=== PATIENT | female | born 1955 | race Caucasian/White ===

== ENCOUNTER 2018-11-05 11:50 | Inpatient (IN) ==
[2018-11-05] MEDS ORDERED: NS 1,000 ML IV ONE (12:42)
[2018-11-05] MEDS ORDERED: ZOFRAN IV ONE (12:42)
[2018-11-05 13:33] LABS: BASO# 0.02 X1000 (0.0-0.2); BASO% 0.4 % (0.0-0.8); EOS# 0.06 X1000 (0.0-0.7); EOS% 1.1 % (0.0-10.0); HEMATOCRIT 21.1 % (37.0-47.0); HEMOGLOBIN 6.5 g/dL (12.0-16.0); LYMPH# 0.75 X1000 (1.2-3.4); LYMPH% 13.4 % (20.5-51.1); MCH 25.5 PG (27-31); MCHC 30.8 g/dL (33-37); MCV 82.7 FL (81-99); MONO# 0.31 X1000 (0.11-0.59); MONO% 5.5 % (1.7-9.3); NEUT# 4.47 X1000 (1.4-6.5); NEUT% 79.6 % (42.2-75.2); PLT 204 X1000 (130-400); RBC 2.55 XMIL (4.2-5.4); WBC 5.61 X1000 (4.8-10.8)
[2018-11-05] MEDS ORDERED: NS 250 ML IV ONE (13:43)
[2018-11-05 13:48] LABS: AGAP 13; ALB/GLOB RATIO 2.1; ALBUMIN 3.9 g/dL (3.5-5.0); ALKALINE PHOSPHATASE 53 U/L (32-104); BUN 26 mg/dL (8-22); CALCIUM 8.4 mg/dL (8.8-10.2); CHLORIDE 106 mmol/L (98-107); COSMO 282; CREATININE 0.7 mg/dL (0.5-0.9); ESTIMATED GFR > 60; GLUCOSE 96 mg/dL (70-104); GOT 12 U/L (10-30); GPT 8 U/L (10-36); POTASSIUM 3.8 mmol/L (3.5-5.1); SODIUM 139 mmol/L (136-145); TCO2 20 mmol/L (25-35); TOTAL BILIRUBIN 0.47 mg/dL (0.20-1.00); TOTAL PROTEIN 5.8 g/dL (6.3-8.3)
--- NOTE | 2018-11-05 14:30 | PROVIDER DOCUMENTATION ---
This chart was entered by Adelita Ortez Scribe, acting as scribe for Ernst Boyle CRNP. HPI-Abdominal Pain/GI Problem - General Chief Complaint: GI Bleed Stated Complaint: rectal bleed Time Seen by Provider: 11/05/18 12:07 Source: patient Allergies/Adverse Reactions: Patient Allergies Allergy/AdvReac Type Severity Reaction Status Date / Time hydromorphone [From Dilaudid] AdvReac VOMITING Verified 11/05/18 13:23 Home Medications: Home Medication List Medication Instructions Recorded Confirmed Last Taken Type Alprazolam 1 tab PO TID 11/05/18 11/05/18 Unknown History Cyanocobalamin (Vitamin B-12) 1,000 mcg IJ DIRECTED 11/05/18 11/05/18 Unknown History [Cyanocobalamin Injection] Quetiapine [Seroquel] 2 tab PO QHS 11/05/18 11/05/18 Unknown History - History of Present Illness-ABD Nature of Presenting Problems: 63yof with hx of anemia c/o fatigue, bloody diarrhea, and nausea for 3 days. States blood is bright red. She denies any pain. She reports she has an appointment with an oncologist tomorrow for anemia. She denies fever, chills, vomiting, or any other symptoms. She is non-toxic in appearance. Quality of Pain: reports: none Severity in ED: reports: mild Onset/Duration: reports: 3 days ago Timing: reports: still present, intermittent, constant Activities at Onset: reports: none Modifying Factors: improves with: nothing Associated Symptoms: reports: diarrhea, nausea, weakness, other (bright red bloody stools) Similar Symptoms Previously?: No Recently seen or treated by another doctor?: No Review of Systems - Adult - REVIEW OF SYSTEMS - ADULT Constitutional: denies: chills, fever Eyes: denies: discharge, dry eyes Ears, Nose, Mouth & Throat: denies: ear discharge, ear pain Cardiovascular: denies: chest pain, palpitations Respiratory: denies: cough, shortness of breath Gastrointestinal: reports: diarrhea, nausea, rectal bleeding Genitourinary: denies: dysuria, hematuria Musculoskeletal: reports: muscle weakness (generalized weakness). denies: back pain Integumentary: reports: no symptoms reported Neurological: denies: dizziness/vertigo, headache/migraines Psychiatric: reports: no symptoms reported Endocrine: reports: no symptoms reported Hematologic/Lymphatic: reports: no symptoms reported Allergic/Immunologic: reports: no symptoms reported All Other Systems: Reviewed and Negative Past History - Adult - PAST MEDICAL HISTORY-ADULT Review of Records: reports: Old Records Reviewed, Nursing Assessment Review, Medications Reviewed Additional History: anemia, blood clots - PRIOR SURGERIES/PROCEDURES Surgical/Procedure History: reports: tonsillectomy - IMMUNIZATION STATUS Childhood Immunizations: See Nurse Assessment Flu Vaccine: See Nurse Assessment - FAMILY HISTORY Family History: reviewed, not pertinent - SOCIAL HISTORY Smoking: non-smoker Substance Use: alcohol Alcohol Use Frequency: occasionally Living Situation: family Physical Exam-General - PHYSICAL EXAM-ADULT Initial Vital Signs Reviewed: Yes - CONSTITUTIONAL General Appearance: alert, no apparent distress. negative: lethargic, slow to respond - EYES Eyes: PERRL/EOMI, pale conjunctivae. negative: sclera injected, scleral icterus, sunken eyes - HEAD, EARS, NOSE, MOUTH & THROAT HENMT: normocephalic/atraumatic, moist mucous membranes - NECK Neck: non-tender, full range of motion, supple, normal inspection - RESPIRATORY Respiratory: chest non-tender, lungs clear, normal breath sounds, no pleuratic chest pain, no respiratory distress, no accessory muscle use - CARDIOVASCULAR Cardiovascular: normal peripheral pulses, regular rate, rhythm, no gallop, no murmur - GASTROINTESTINAL (ABDOMEN) Abdominal Exam: soft, no organomegaly, tenderness (diffuse- mild, pt reports abdomen is "sore"), other (hyperactive bowel sounds). negative: distended, gu arding, rigid, rebound, hernia, mass, hepatomegaly, splenomegaly - GENITOURINARY Rectal Exam: hemorrhoids, other (gross red blood) - MUSCULOSKELETAL Back Exam: normal inspection Extremity: normal range of motion, non-tender, normal inspection, no pedal edema - SKIN Integumentary: warm/dry, other (Pt appears pale). negative: cyanosis, diaphoresis, jaundice, mottled - NEUROLOGIC Neurologic: grossly normal, no motor/sensory deficits - PSYCHIATRIC Psych/Mental Status: normal mood/affect, normal thought content, normal thought process, oriented x 3 Progress - PLAN OF CARE/RESULTS Progress/Plan/Lab Results: Vital Signs - 8 hr 11/05/18 12:22 Temperature 97.8 F Pulse Rate 90 Respiratory Rate 19 Blood Pressure 154/96 O2 Sat by Pulse Oximetry 100 Pt in agreement with admission plan. Result Diagrams: 11/05/18 13:05 11/05/18 13:05 - EKG 1 Time of EKG reading by physician:: 12:19 EKG Read and Signed by:: Chris Coleman EKG Interpretation (*Must complete 3 of following elements*): Abnormal Rate: 90 Rhythm: Undetermined rhythm - CONSULTS/PCP/HOSPITALIST Notification #1 *Consult/PCP/Hospitalist*: NOEMY Norman [employer] Time Discussed: 14:18 Reason/Comments: GI bleed admission Consult Disposition: Admit Departure - Departure Date of Disposition Decision: 11/05/18 Time of Disposition Decision: 14:27 DIAGNOSIS: GI bleed Qualifiers: GI bleed type/associated pathology: unspecified gastrointestinal hemorrhage type Qualified Code(s): K92.2 - Gastrointestinal hemorrhage, unspecified Anemia Qualifiers: Anemia type: unspecified type Qualified Code(s): D64.9 - Anemia, unspecified Disposition: ADMITTED INPATIENT 09 Certified Medical Emergency: Emergent Condition: Stable Referrals and Follow-Ups: Bryce Núñez MD [Primary Care Provider] - - Critical Care Note This patient required my direct & personal management of CC.: No Attestation - Physician/ JONO Attestation Patient care was provided by Advanced Practice Provider:: Yes Advanced Practice Provider:: Ernst Boyle Advanced Practice Provider documentation review:: The Mid-level provider documentation, treatment plan and medical decision making was reviewed by the physician who agrees with all treatment and medical decision making by the [facility]. The physician spent face to face time with patient:: No Advanced Practice Provider documentation review:: Supervising physician onsite and consulted in the evaluation and care of this patient. The physician did not have a face to face encounter with the patient. This chart was documented by the indicated scribe, (Adelita Ortez Scribe) and accurately reflects the services I performed and decisions made by , Ernst Boyle CRNP, as attested by the provider's signature.
[2018-11-05 14:36] LABS: INR 0.91
[2018-11-05 14:37] LABS: PTT 24.9 Seconds (22.3-41.8)
[2018-11-05 15:00] LABS: IRON SATURATION 3 %; TIBC 353 ug/dL; TOTAL IRON 11 ug/dL (49-151); UNBOUND IRON 342 ug/dL (112-346)
[2018-11-05 15:15] LABS: FERRITIN 5 ng/mL (13-150)
--- NOTE | 2018-11-05 15:17 | Diag Imaging Result Doc PS360 ---
EXAM: CT ABDOMEN/PELVIS W/O CONTRAST HISTORY: gib TECHNIQUE: CT abdomen and pelvis without contrast. No oral contrast given either. COMPARISON: None. FINDINGS: There is a small stone within the gallbladder. No adjacent inflammation. Normal noncontrasted liver, spleen, pancreas, and adrenal glands. There are tiny renal stones. No hydronephrosis. No aortic aneurysm. There are sutures in the mid right abdomen and surgical clips in the mid left abdomen. A portion of the colon has been resected. No bowel obstruction. No abscess. Urinary bladder is distended and is normal. Normal uterus. No pelvic mass. IMPRESSION: 1.Cholelithiasis 2.Nephrolithiasis This exam was performed using automated exposure control, adjustment of mA or kV according to patient size, and/or use of iterative reconstruction technique. Electronically signed by Perry Reyes 11/05/2018 3:15 PM
--- NOTE | 2018-11-05 17:07 | HISTORY AND PHYSICAL ---
PRIMARY CARE PROVIDER: Dr. Núñez. CHIEF COMPLAINT: Bloody diarrhea. HISTORY OF PRESENT ILLNESS: Ms. Ping Avalos is a 63-year-old female who was recently living in [place], is now living here, who has a history of iron insufficiency anemia with frequent blood transfusions and iron transfusions. She does not have a local newspaper or periodical editor here, but I believe she was supposed to have an appointment with Dr. Chaudhary for tomorrow morning. Also, with significant B12 deficiency. She has a significant history of having to have two colon resections, once ten years ago in [place] and the second time was three years ago in [place] due to what she said was " gut." They do not know the exact cause of it. One of her complications that she experienced after the one three years ago is the full leg, left leg, had a DVT in it, which developed a clot that broke off and caused pulmonary emboli. She had a filter put in at that time and was on Coumadin up until about seven months ago when she stopped that. Since then, she has been on aspirin, full dose, daily. She has chronic abdominal pain as well. Now, she presents with four days of bloody diarrhea and for three days in a row she only had one stool per day that was bloody and then yesterday she had five bloody stools, which she had a photo of and it appeared to be just a toilet full of bright red blood. She is still currently complaining of the left leg pain. She has had chills, numbness in her fingertips, shortness of breath with weakness and dizziness. Her initial hemoglobin and hematocrit here is 6 and 21, so she will be receiving two packed red blood cells, a Gastroenterology consult, Protonix drip, and give her history of significant iron deficiency anemia where she is actually treated pretty frequent through a newspaper or periodical editor, will consult Dr. Chaudhary, who I believe she is supposed to see tomorrow. Given the amount of blood that she has been having in stools, she has not had any today, but will go ahead and put her in the ICU overnight just to monitor and give her some blood. that only recently she has been having clear productive, scant yellow phlegm. No fever. No lower PAST MEDICAL HISTORY: 1. Iron deficiency anemia, receives iron transfusions and blood transfusions. 2. Severe B12 deficiency. 3. 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 4. 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 5. Chronic abdominal pain. PAST SURGICAL HISTORY: 1. Two colon resections, the first one ten years ago in [place] and the second one three years ago in [place]. 2. Loop recorder. 3. Bilateral tubal ligation. 4. Clot filter in the groin, probably a Roberta filter. SOCIAL HISTORY: Denies tobacco, alcohol or illicit drug use. She is retired from [employer]. Currently she has a daughter who has had a stroke that is at [place], which her daughter's name is Adelaida Doran. FAMILY HISTORY: Mother had lung cancer. Father had brain aneurysm and lung cancer. ALLERGIES: Dilaudid. HOME MEDICATIONS: 1. Seroquel 100 mg p.o. nightly. 2. Xanax 1 mg p.o. t.i.d. 3. Vitamin B12 1000 mcg, I believe it is every two weeks. REVIEW OF SYSTEMS: A 14-point review of systems are complete and all are negative except for those mentioned in the above HPI. PHYSICAL EXAMINATION: VITAL SIGNS: Temperature 97.8, heart rate 84, respiratory rate 21, blood pressure 117/83, O2 saturation is 100% on room air. GENERAL: Ms. Ping Avalos is a 63-year-old female. She is in no acute distress. She is able to answer questions appropriately. HEENT: Atraumatic and normocephalic. Pupils equal, round, and reactive to light. Extraocular movements intact. Mucus membranes are dry. NECK: Trachea midline. CARDIOVASCULAR: S1 and S2. Regular rate and rhythm. No rubs, gallops or murmurs. No lower extremity edema. Plus 2 dorsalis and radial pulses. Negative JVD or carotid bruits. PULMONARY: Clear to auscultate, bilateral breath sounds. No accessory muscle use or work of breathing noted. GI: Soft. Tender in all four quadrants. Decreased abdominal sounds in all four quadrants. EXTREMITIES: Moves all extremities equally with full range of motion. NEUROLOGICAL: Alert and oriented x3. Follows commands. Sensory is intact except for some numbness in the fingertips and pain down the left leg. SKIN: Warm, dry and intact. Pale. LABORATORY DATA: White blood cells 5,000, hemoglobin 6.5, hematocrit 21.1, platelet count 204. INR 0.91. PTT 24.9. Sodium 139, potassium 3.8, BUN 26, creatinine 0.7, glucose 97, calcium 8.4. Iron is 11. Total iron binding capacity is 353 with a saturation of 3. Unsaturated iron binding is 342. Ferritin is 5. Bilirubin is 0.47. AST 12 and ALT 8. Albumin 3.9. Vitamin B12 is 844, so that is stable. IMAGING: Abdominopelvic CT shows cholelithiasis and nephrolithiasis. ASSESSMENT AND PLAN: 1. Gastrointestinal bleeding with abdominal pain, although she has chronic abdominal pain. Will do Protonix drip. She has had multiple colon resections, two colon resections noted. Will do clear liquids for now and nothing by mouth after midnight. Consult Gastroenterology. Will do oral Carafate. 2. Severe iron deficiency anemia with B12 deficiency and now with acute blood loss anemia. Will receive two units of blood. She cannot tolerate oral iron. She states that it just does not work, so she always gets iron transfusion, so will go ahead and order her some Venofer. Will consult Dr. Chaudhary. Apparently she had an appointment with him tomorrow. Will also monitor her a little more closely in the Intensive Care Unit and do serial hematocrit and hematocrit every six hours 3. History of left leg deep venous thrombosis three years ago along with pulmonary emboli. She does complain of the left leg aching now. She has a filter and she used to be on Coumadin up until seven months ago, which she stopped that, but she has been on aspirin every day, so will hold that as well. It was full dose aspirin. 4. Deep venous thrombosis prophylaxis with sequential compression devices. Dictated by LARISSA Lomeli for Abhijeet Murillo MD Addendum: Patient seen and examined by myself. Agree with LARISSA note. It reflects my assessment and plan. Patient is being admitted to hospital because of possible GI bleeding and leaking from PEG tube. Will consult GI, will monitor CBC daily. At this point will hold any blood thinner cc: LARISSA Lomeli MD [facility]
[2018-11-05] MEDS: XANAX PO SCH (18:43)
[2018-11-05] MEDS: PROTONIX 80 MG in NS 80 ML IV SCH (18:59)
[2018-11-05 19:46] LABS: URINE SOURCE CLEAN CATCH
[2018-11-05 19:57] LABS: BILIRUBIN URINE NEGATIVE (NEGATIVE); BLOOD URINE NEGATIVE (NEGATIVE); COLOR YELLOW; GLUCOSE URINE NEGATIVE (NEGATIVE); KETONE URINE NEGATIVE (NEGATIVE); PROTEIN URINE NEGATIVE (NEGATIVE); SP GRAVITY URINE 1.015; TURBIDITY URINE CLEAR (CLEAR)
[2018-11-05 19:58] LABS: LEUKOCYTES URINE NEGATIVE (NEGATIVE); NITRITE URINE NEGATIVE (NEGATIVE); UROBILINOGEN URINE NORMAL (NORMAL)
[2018-11-05 19:59] LABS: UR EPITHELIAL CELLS <10 /HPF (<10); URINE BACTERIA NEGATIVE /HPF; URINE RBC <10 /HPF (<10); URINE WBC <10 /HPF (<10)
[2018-11-05] MEDS ORDERED: CARAFATE LIQUID PO SCH (20:00)
[2018-11-05] MEDS: SEROQUEL PO SCH (23:06)
[2018-11-06 00:43] LABS: HEMATOCRIT 23.6 % (37.0-47.0); HEMOGLOBIN 7.6 g/dL (12.0-16.0)
[2018-11-06 02:32] LABS: HEMOGLOBIN 7.4 g/dL (12.0-16.0)
[2018-11-06] MEDS: PROTONIX 80 MG in NS 80 ML IV SCH ×3 (05:00→19:24)
[2018-11-06 06:18] LABS: BASO# 0.02 X1000 (0.0-0.2); BASO% 0.5 % (0.0-0.8); EOS% 2.6 % (0.0-10.0); HEMATOCRIT 23.4 % (37.0-47.0); HEMOGLOBIN 7.4 g/dL (12.0-16.0); LYMPH# 0.98 X1000 (1.2-3.4); LYMPH% 25.3 % (20.5-51.1); MCH 26.6 PG (27-31); MCHC 31.6 g/dL (33-37); MCV 84.2 FL (81-99); MONO# 0.36 X1000 (0.11-0.59); MONO% 9.3 % (1.7-9.3); MPV 12.2 FL (7.4-10.4); NEUT# 2.41 X1000 (1.4-6.5); NEUT% 62.3 % (42.2-75.2); PLT 167 X1000 (130-400); RBC 2.78 XMIL (4.2-5.4); RDW 13.1 % (11.5-14.5); WBC 3.87 X1000 (4.8-10.8)
[2018-11-06 06:37] LABS: INR 1.06; PROTIME 14.6 Seconds (11.0-16.0)
[2018-11-06 06:38] LABS: PTT 25.6 Seconds (22.3-41.8)
[2018-11-06 07:12] LABS: AGAP 11; ALB/GLOB RATIO 2.5; ALBUMIN 3.2 g/dL (3.5-5.0); ALKALINE PHOSPHATASE 47 U/L (32-104); BUN 26 mg/dL (8-22); CHLORIDE 109 mmol/L (98-107); CK TOTAL 100 U/L (24-173); COSMO 288; CREATININE 0.8 mg/dL (0.5-0.9); ESTIMATED GFR > 60; GLUCOSE 94 mg/dL (70-104); GOT 10 U/L (10-30); GPT 7 U/L (10-36); MAGNESIUM 1.8 mg/dL (1.5-2.7); POTASSIUM 3.9 mmol/L (3.5-5.1); SODIUM 142 mmol/L (136-145); TCO2 22 mmol/L (25-35); TOTAL BILIRUBIN 2.47 mg/dL (0.20-1.00); TOTAL PROTEIN 4.5 g/dL (6.3-8.3)
--- NOTE | 2018-11-06 07:49 | EKG Report ---
Test Performed on : 11/06/2018 07:25:30 AM Test Reason : chest pain Blood Pressure : / mmHG Vent. Rate : 079 BPM Atrial Rate : 079 BPM P-R Int : 136 ms QRS Dur : 076 ms QT Int : 392 ms P-R-T Axes : 080 006 038 degrees QTc Int : 449 ms Normal sinus rhythm. Nonspecific ST and T wave abnormality Abnormal ECG When compared with ECG of 05-NOV-2018 12:19, (Unconfirmed) Previous ECG has undetermined rhythm, needs review Unconfirmed Result
[2018-11-06 07:58] LABS: HEMATOCRIT 21.7 % (37.0-47.0); HEMOGLOBIN 7.1 g/dL (12.0-16.0)
[2018-11-06] MEDS ORDERED: INJECTAFER 750 MG in NS 250 ML IV ONE (08:04)
[2018-11-06] MEDS: CARAFATE LIQUID PO SCH ×4 (08:06→23:57)
[2018-11-06] MEDS: NS 1,000 ML IV SCH ×2 (08:17→20:55)
[2018-11-06] MEDS ORDERED: ZOFRAN IV PRN (08:17)
[2018-11-06] MEDS: XANAX PO SCH ×3 (09:00→20:54)
--- NOTE | 2018-11-06 09:16 | Diag Imaging Result Doc PS360 ---
FOOT COMPLETE LEFT - 11/06/2018 INDICATION: pain TECHNIQUE: Three views COMPARISON: None FINDINGS: Bones are intact and normally aligned. Joint spaces and soft tissues are clear. IMPRESSION: Negative exam. Electronically signed by Idris Gomez 11/06/2018 9:14 AM
--- NOTE | 2018-11-06 09:23 | PROGRESS NOTE ---
DATE: 11/06/2018 SUBJECTIVE: The patient states that she is having persistent nausea. She denies any vomiting or any dry heaves. She does state she continues to feel weak. She denies any further stools. OBJECTIVE: Vital Signs: Blood pressure 94/63, heart rate 87, respirations 18, temperature 98 degrees with room air sats of 9%. Eyes: Pupils are equal, round, and reactive to light. EOMs are intact. Sclerae are anicteric. HEENT: Head is normocephalic, atraumatic. Mucous membranes are dry. Neck: Supple. Trachea midline. Cardiovascular: Regular rate and rhythm. S1-S2 appreciated. No rubs. No murmurs. She has no lower extremity edema. Peripheral pulses are palpable x4 extremities. Pulmonary: Breath sounds are clear with no increased work up breathing noted. Chest rises and falls symmetric with respirations. Chest wall is nontender to palpation. Gastrointestinal: Soft. Nontender. Nondistended. Bowel sounds in all 4 quadrants. : She has no CVA nor suprapubic tenderness. Neurologic: She is alert and oriented x3. Skin: Warm and dry and pale. LABORATORY: WBC is 3.8 with a hemoglobin 7.4, hematocrit 23.4, and platelets 167,000. Sodium is 142, potassium 3.9, BUN is 26, creatinine 0.8 with a glucose of 94. Total bilirubin is 2.4. Stool for occult blood was positive in the emergency room at 130 on 11/05. ASSESSMENT AND PLAN: 1. GI bleed. The patient has no further bleeding per her report. We will continue her Protonix drip. We will check stools for occult blood. We are awaiting GI evaluation. She will remain NPO. 2. Iron deficiency anemia with B12 deficiency. Now blood loss anemia. She received 2 units of packed cells. 1 unit prbc today, reevaluate 3. Left foot pain. The patient complains of pain on the plantar aspect of her foot with walking or palpations. She is noted to have good PMS bilaterally. Capillary refill is less than 10 bilateral with good pulses bilateral. We will x-ray her left foot. 4. History of left leg DVT and pulmonary emboli. Currently, on aspirin therapy. We will continue to hold aspirin due to her GI bleed. Left lower extremity Doppler has been performed. We are awaiting read. 5. Persistent nausea. We will continue NPO Carafate and Zofran. Further treatment pending hospital course. Dictated by LARISSA Spencer for Abhijeet Murillo MD This chart was documented by, LARISSA Spencer and accurately reflects the services performed, treatment plan and medical decisions as attested by the providers signature Abhijeet Murillo MD. cc: LARISSA Spencer MD [facility]
--- NOTE | 2018-11-06 11:09 | HEMO/ONC CONSULTATION ---
DATE: 11/06/2018 CHIEF COMPLAINT: We are being consulted for further management of the patient's anemia. HISTORY OF PRESENT ILLNESS: Ms. Avalos presented to the emergency department complaining of increased amounts of bloody diarrhea and nausea for the past 3 days prior to coming to the ER. The patient's blood is bright red. The patient denies any pain. The patient denies any fevers or chills. No vomiting. No other symptoms. While in the emergency department, the patient was found hemoglobin 6.5, hematocrit 21.1. The patient has had a significant history of anemia and was supposed to be following up in our office for further evaluation, but has not made her appointment as of this time yet. PAST MEDICAL HISTORY: 1. Iron-deficient anemia. 2. Severe B12 deficiency. 3. Ischemic gut. 4. History with 2 colon resections. 5. Left leg complete DVT. 6. Pulmonary emboli and was placed on Coumadin. Stopped that 7 months ago and currently on full-dose aspirin. 7. Chronic abdominal pain. PAST SURGICAL HISTORY: 1. Two colon resections. 2. Loop recorder. 3. Bilateral tubal ligation. 4. IVC filter to groin. FAMILY HISTORY: Lung cancer SOCIAL HISTORY: Denies any tobacco, alcohol, or illicit drug use. ALLERGIES: Allergic to Dilaudid. HOME MEDICATIONS: 1. Xanax. 2. Aspirin. 3. Vitamin B12. 4. Seroquel. REVIEW OF SYSTEMS: Negative except as mentioned in HPI. PHYSICAL EXAM: Vital Signs: Temperature 98.0 degrees, heart rate 87, respiratory rate 15, blood pressure 94/63, saturating 99% on room air. General: The patient is awake, lying in bed, no acute distress noted. HEENT: Anicteric. Mucous membranes moist. Neck: Supple. Trachea midline. No JVD present. No palpable lymphadenopathy. Cardiovascular: S1, S2. Regular rate and rhythm. Chest: Bilateral breath sounds clear to auscultation. Abdomen: Soft. Tender noted on palpation. Bowel sounds present in all 4 quadrants. Skin: Warm, dry, and intact. Neurologic: Alert and oriented x3. No focal deficits noted. LABORATORY DATA: White blood cell count 3.87, hemoglobin 7.6, hematocrit 23.6, platelets are 167,000. Potassium 3.9, BUN of 26, creatinine 0.8. ASSESSMENT AND PLAN: 1. Gastrointestinal bleed: Gastroenterology has been consulted. Continue with proton pump inhibitors. Continue to hold aspirin. Continue recommendations per primary team and Gastroenterology. 2. Anemia: The patient has significant iron deficiency at this time, most likely related to her gastrointestinal bleed. We will replace IV iron today. Will continue to monitor hemoglobin and hematocrit closely. If needed, transfuse as needed. 3. History of deep venous thrombosis: Continue with sequential compression device. Continue to have the patient get out of bed as much as possible. Continue to monitor closely. Plan of care discussed with Dr. Chaudhary. Dictated by LARISSA Montero for Matt Chaudhary MD Patient seen and examined. As above. Matt Chaudhary M.D. cc: LARISSA Montero MD [facility]
--- NOTE | 2018-11-06 11:42 | GASTROENTEROLOGY CONSULTATION ---
DATE: 11/06/2018 REQUESTING PHYSICIAN: Dr. Ibrahim PRIMARY CARE DOCTOR: Bryce Núñez MD REASON FOR CONSULTATION: GI bleeding. HISTORY OF PRESENT ILLNESS: Ms. Avalos is a 63-year-old female who was admitted on 11/05/2018 through the emergency room for bloody diarrhea. The patient has just moved from [place] recently. According to the patient, she has been helping her daughter who had a stroke recently. The patient is on full-dose aspirin 325 mg every day for history of deep venous thrombosis in the left leg 2-1/2 years ago. The patient has history of 2 colon resections. The 1st one was 10 years ago in [place] and 2nd one about 2-1/2 years ago in [place]. The 1st time she was told the colon had ischemia and was resected. The 2nd time she had a bowel resection for stenosis. She was never diagnosed with Crohn's disease. She has no family history of Crohn's disease. During the recovery phase of her 2nd bowel resection, she developed DVT in the left leg and at that time, she needed a clot extraction. She was put on aspirin full dose every day. According to the patient, she has had a colonoscopy 2-1/2 years ago for her last bowel resection. She denies any vomiting blood. She has been noticing blood in the stools the last 4 days. Last bowel movement was yesterday which was bloody. Today she has not moved her bowels. She denies any vomiting blood. She complains of abdominal pain in the periumbilical region. Gastroenterology was consulted for further management. PAST MEDICAL HISTORY: 1. Iron deficiency anemia. She receives iron infusions and blood transfusion. Severe B12 deficiency and ischemic colitis. Required colon resection 10 years ago and history of stenosis in the colon requiring a 2nd colon surgery 2-1/2 years ago. 2. Left complete leg DVT about 2-1/2 years ago which caused PE and clot to the heart, and now she has a filter and was on Coumadin, which was stopped 7 months ago. She stays on full-dose aspirin every day. 3. Chronic abdominal pain. PAST SURGICAL HISTORY: 1. Two colon resections, one 10 years ago in [place] and 2nd one 2-1/2 years ago in [place]. 2. Loop recorder. 3. Bilateral tubal ligation. 4. Clot filter in the groin and probably a [place] filter. SOCIAL HISTORY: She denies any tobacco, alcohol, or illicit drug abuse. She is retired from [employer]. She currently is helping her daughter who had a stroke recently at [place]. FAMILY HISTORY: Mother had lung cancer. Father had brain aneurysm, lung cancer. ALLERGIES: Dilaudid. USUAL MEDICATIONS AT HOME: Seroquel 100 mg daily. Xanax 1 mg p.o. t.i.d. Vitamin B12 1000 units every 2 weeks. MEDICATIONS IN THE HOSPITAL: Seroquel, Xanax, normal saline, Zofran Protonix drip, Carafate, Iron IV. She is n.p.o. REVIEW OF SYSTEMS: Denies any fevers, rigors, chills, chest pain, shortness of breath, dyspnea. Denies any vomiting blood. No rebound. Does complain of abdominal pain in the periumbilical region. Does complain of bloody diarrhea for the last 4 days, which has been persistent, but she had no bowel movement today. She does have history of anxiety and depression. She denies any history of arthritis. She denies any neurological complaints. She does admit to taking full-dose aspirin every day. BODY WEIGHT: 140 pounds, BMI 20.7 kg. PHYSICAL EXAMINATION: Vital signs: Temperature 98 degrees, pulse rate of 89, respiratory rate 15, blood pressure 106/68, saturating 99% on room air. General appearance: Thinly built, lying in bed, in no acute distress. HEENT: Pale conjunctivae. No icterus. Pupils equal, reactive to light. Neck: Supple. Abdomen: Discomfort in the periumbilical region. No rebound or guarding. Bowel sounds present. Extremities: No cyanosis, clubbing, edema. Neurologic: She is alert, awake, oriented. LABORATORIES: Hemoglobin and hematocrit 7.1 and 21.7, white count of 3.87, platelet count of 167,000. MCV of 84.2. Her sodium of 142, potassium 3.9, chloride 109, bicarb 22, anion gap, BUN of 26, creatinine 0.8, glucose of 94, calcium is 8, magnesium 1.8. Total bilirubin is 2.47. AST 10, ALT 7, alkaline phosphatase 47, total protein is 4.5, albumin 0.2. B12 844, folate of 34.6. Urinalysis is clear. INR 1.06. PT of 14.6. PTT of 25.6. IMAGING: Abdominal and pelvic CT scan done showed small stones in the gallbladder. Sutures in the right mid abdomen and surgical clips in the left mid abdomen. A portion of the colon has been resected. No pelvic mass. Tiny renal stones noted. Foot x-ray showed negative exam. IMPRESSION AND PLAN: 1. Gastrointestinal bleed. In this regard, we will schedule for EGD and colonoscopy tomorrow with Dr Beck. The patient could have peptic ulcer disease as she has been on full dose aspirin for a while. We will continue on Protonix drip. We will transfuse her to keep hematocrit more than 25%. We will give her 2 units today. We will start her on Carafate 1 g every 6 hours for now. We will check serial hematocrit and type and cross, transfuse to keep hematocrit more than 25%. 2. Previous history of iron deficiency anemia. She has been receiving iron infusions. This could be from a history of peptic ulcer disease as she has been on aspirin. 3. Vitamin B12 deficiency. She takes vitamin B12 as an outpatient. 4. Left foot pain. X-rays are normal. Primary care is following. 5. History of left leg DVT and PE. She was on aspirin. Her last dose was yesterday. 6. Nausea. We will continue on Zofran and Carafate. 7. We appreciate Hematology recommendations. She is on IV iron. 8. We will start on clear liquid diet today and start bowel prep later today and schedule for EGD colonoscopy tomorrow. 9. The above plans were discussed with the patient and the nursing staff and all questions answered. Please call us with any further questions. cc: MD Bryce Reinoso MD Cesar Garcia-Rodriguez, MD MTDD
[2018-11-06] MEDS ORDERED: NS 500 ML ONE (12:05)
[2018-11-06] MEDS ORDERED: CYANOCOBALAMIN IM ONE (12:54)
[2018-11-06] MEDS ORDERED: GOLYTELY PO ONE (14:00)
[2018-11-06] MEDS: OFIRMEV 1000 MG/ISOTONIC SOLN 1,000 MG/100 ML BOTTLE IV PRN (17:07)
[2018-11-06] MEDS: SEROQUEL PO SCH (20:53)
[2018-11-06 23:01] LABS: HEMATOCRIT 29.7 % (37.0-47.0); HEMOGLOBIN 9.9 g/dL (12.0-16.0)
[2018-11-07] MEDS: PROTONIX 80 MG in NS 80 ML IV SCH ×5 (00:34→20:38)
[2018-11-07] MEDS: CARAFATE LIQUID PO SCH ×4 (05:45→23:29)
[2018-11-07 06:12] LABS: HEMATOCRIT 31.8 % (37.0-47.0); HEMOGLOBIN 10.5 g/dL (12.0-16.0); MCH 27.4 PG (27-31); MPV 11.6 FL (7.4-10.4); RBC 3.83 XMIL (4.2-5.4); RDW 14.5 % (11.5-14.5); WBC 4.04 X1000 (4.8-10.8)
[2018-11-07 07:04] LABS: AGAP 6; BUN 11 mg/dL (8-22); CHLORIDE 115 mmol/L (98-107); COSMO 290; CREATININE 0.7 mg/dL (0.5-0.9); ESTIMATED GFR > 60; GLUCOSE 95 mg/dL (70-104); POTASSIUM 4.2 mmol/L (3.5-5.1); SODIUM 146 mmol/L (136-145); TCO2 25 mmol/L (25-35)
[2018-11-07] MEDS: XANAX PO SCH ×3 (08:24→20:43)
[2018-11-07] MEDS: OFIRMEV 1000 MG/ISOTONIC SOLN 1,000 MG/100 ML BOTTLE IV PRN (08:24)
--- NOTE | 2018-11-07 08:59 | GENERAL SURGERY CONSULTATION ---
DATE: 11/07/2018 REQUESTING PHYSICIAN: Dr. Boland. REASON FOR CONSULTATION: GI bleed. HISTORY OF PRESENT ILLNESS: A 63-year-old female who was admitted on November 05 through the emergency department for bloody diarrhea. She has recently moved from [place] where she has had multiple surgeries for what she describes as ischemic bowel. She has been here and has been on aspirin for DVT even though she has a filter. She has had multiple episodes of diarrhea that were bloody since she has been admitted and she has been transfused. The plan is for a colonoscopy. She does have some left-sided abdominal pain. She has been hemodynamically stable in the ICU. PAST MEDICAL HISTORY: 1. Iron deficiency anemia. 2. History of DVT. 3. Chronic abdominal pain. PAST SURGICAL HISTORY: Includes 2 colon resections, bilateral tubal ligation, IVC filter. SOCIAL HISTORY: Denies alcohol, tobacco, or illicit drugs. FAMILY HISTORY: Positive for lung cancer, brain aneurysm. ALLERGIES: Dilaudid. HOME MEDICATIONS: Reviewed, and medications in the hospital reviewed. She is on a Protonix drip. REVIEW OF SYSTEMS: A full 10 point review of systems obtained and negative except for those specified in HPI. PHYSICAL EXAMINATION: Vital Signs: Patient is currently afebrile. Her vital signs are stable. General: No acute distress. Resting comfortably. Female looks stated age. HEENT: Normocephalic, atraumatic. Pupils equal, round, reactive to light. Mucous membranes moist. Oropharynx benign. Neck: Supple. Trachea midline. Cardiovascular: Regular rate and rhythm. Lungs: Grossly clear. Abdomen: Soft. Some tenderness to palpation on the left side. Previous lower midline incision noted. Extremities: Moves all extremities. Neurologic: Grossly intact. Skin: No signs of jaundice. Vascular: All extremities perfused. LABORATORY DATA: Most recent hematocrit is 29.7, but she has been getting multiple units of blood. ASSESSMENT AND PLAN: A 63-year-old with gastrointestinal bleed. Gastrointestinal bleed. At this time, agree with GI seeing the patient for an endoscopy apparently scheduled for today. We will follow up with their recommendations and results. cc: Darin Cortez MD
--- NOTE | 2018-11-07 09:58 | HEMO/ONC PROGRESS NOTE ---
DATE: 11/07/2018 SUBJECTIVE: Patient says she feels better. The patient continues to have increased amounts of nausea. OBJECTIVE: Vital Signs: Temperature 98.5 degrees, heart rate 63, respiratory 14, blood pressure 122/63, saturation 100% on room air. General patient is awake, lying in bed, no distress noted. HEENT: Anicteric. Pupils PERRLA. Mucous membranes dry. Cardiovascular S1, S2. Regular rate and rhythm. Chest bilateral breath sounds, clear to auscultation. Abdomen soft, mildly tender on palpation. Bowel sounds present all 4 quadrants. Neurologic alert orient x3. No focal deficits noted. LABORATORY DATA: White count 4.04, hemoglobin 10.5, hematocrit of 31.8, platelets are 137, potassium 4.2, BUN 11, creatinine 0.7. ASSESSMENT AND PLAN: 1. Gastrointestinal bleeding: Plan is for esophagogastroscopy and colonoscopy later with Gastroenterology. Continue per their recommendations. Continue to monitor. 2. Anemia: The patient is status post IV iron, 2 units of packed red blood cells. Hemoglobin and hematocrit has improved. Continue to monitor closely. Transfuse as needed. 3. History of deep venous thrombosis prophylaxis. Continue sequential compression devices. Continue the patient get out of bed. Plan of care discussed with Dr. Chaudhary. Dictated by LARISSA Montero for Matt Chaudhary MD Patient seen and examined. As above. GI bleeding, going for EGD and colonoscopy today. She is status post IV and yesterday. Repeat IV iron in a week. Transfuse as needed in the meanwhile. Matt Chaudhary M.D. cc: Matt Chaudhary MD [facility]OSPITALDeangelo
[2018-11-07] MEDS ORDERED: MORPHINE IV ONE (10:52)
[2018-11-07] MEDS: NS 1,000 ML IV SCH ×2 (11:11→23:29)
[2018-11-07] MEDS ORDERED: DIPRIVAN 1% ONE (12:40)
--- NOTE | 2018-11-07 13:31 | OPERATIVE NOTE ---
PROCEDURE DATE: 11/07/2018 PROCEDURES: 1. Colonoscopy and biopsy. 2. Esophagogastroduodenoscopy. PREOPERATIVE DIAGNOSES: Nausea, vomiting, diarrhea, and blood in the stool. POSTOPERATIVE DIAGNOSES: 1. Status post colectomy with sigmoid colon anastomosis. 2. Superficial anastomotic erosions, biopsied. 3. Normal EGD. 4. No evidence of active colitis. DESCRIPTION OF PROCEDURE: After informed consent and adequate intravenous sedation, the scope introduced through the esophagus, stomach, and duodenum. The upper gastrointestinal tract is completely normal. I did not see anything significant in the upper gastrointestinal tract. At this point, a digital rectal exam performed. Scope was introduced in the terminal ileum which was normal. The patient has superficial anastomotic ulceration with a wide anastomosis in the sigmoid colon to the ileum. The colon itself is normal. The ileum itself is again normal. This anastomotic problem appears to be chronic, and not related to the current illness. We sent the stool for studies, but I suspect she probably had gastroenteritis and chronic iron deficiency anemia for which she required iron transfusion. cc: Carleen Beck MD
--- NOTE | 2018-11-07 14:55 | Extremity Venous Study ---
PROCEDURE NAME: Venous U/S Left Leg - 11/06/2018 LEFT LOWER EXTREMITY VENOUS STUDY: REQUESTING PHYSICIAN: Dr. Parker, Emergency Department. IRON MOLDER HELPER: Lashae. INDICATIONS: 1. History of DVT left leg 2-1/2 years ago. 2. Left foot pain. EQUIPMENT: [employer] E9 ultrasound system, with a 9 L-D transducer. TECHNIQUE: Images of the left lower extremity venous system with comparison shot to the right common femoral vein were obtained in both sagittal and transverse planes. Doppler was used to evaluate veins for spontaneity, phasicity, respiratory excursion and digital augmentation. RESULTS: Normal venous compression with normal venous flow. No obvious superficial or deep venous thrombosis noted on this study. INTERPRETATION: Essentially normal left lower extremity venous study. cc: MD Charlie Lawson MD
--- NOTE | 2018-11-07 18:35 | PROGRESS NOTE ---
DATE: 11/07/2018 SUBJECTIVE: The patient was complaining of a headache this morning. OBJECTIVE: Vital Signs: Temperature 98.2, blood pressure 157/84, heart rate 67, respirations 13. O2 sats 98% on room air. General: This is an elderly female lying in bed in no acute distress. Heart: S1, S2 normal. Regular rate and rhythm. Lungs: Clear to auscultation bilaterally. Abdomen: Positive bowel sounds. Soft, nontender, nondistended. Extremities: No edema, no cyanosis. Neurologic: The patient is alert and oriented x 3. LABS: White blood cell count 4, hemoglobin 10, hematocrit 31, platelets 137,000. Sodium 136, potassium 4.2, chloride 115, CO2 25, BUN 11, creatinine 0.7, glucose 95. ASSESSMENT AND PLAN: 1. GI bleed. The patient had an endoscopy done today that revealed superficial erosions. We will continue with Protonix. 2. Severe iron deficiency anemia. Management as per the fire alarm repairer. 3. Anxiety disorder. Continue on Xanax. 4. DVT prophylaxis. Continue with SCDs. cc: Dea Barragan MD MTDD
[2018-11-07] MEDS: SEROQUEL PO SCH (20:43)
[2018-11-08] MEDS: PROTONIX 80 MG in NS 80 ML IV SCH ×2 (03:57→06:10)
[2018-11-08] MEDS: CARAFATE LIQUID PO SCH ×4 (06:12→23:52)
[2018-11-08 06:43] LABS: AGAP 7; BUN 5 mg/dL (8-22); CALCIUM 7.7 mg/dL (8.8-10.2); CHLORIDE 115 mmol/L (98-107); COSMO 289; CREATININE 0.7 mg/dL (0.5-0.9); ESTIMATED GFR > 60; GLUCOSE 87 mg/dL (70-104); POTASSIUM 3.9 mmol/L (3.5-5.1); SODIUM 147 mmol/L (136-145); TCO2 25 mmol/L (25-35)
--- NOTE | 2018-11-08 06:43 | GENERAL SURGERY PROGRESS NOTE ---
DATE: 11/08/2018 SUBJECTIVE: Patient doing okay. She has not had a bloody bowel movement she says other than the most recent one. Reviewed colonoscopy dictation and talked with Dr. Beck. It sounds like she had some areas of superficial irritation and erosion on her previous anastomosis. OBJECTIVE: Vital Signs: Patient is currently afebrile. Her vital signs stable. General: No acute distress. HEENT: Normocephalic, atraumatic. Pupils equal, round, reactive to light. Mucous membranes moist. Oropharynx benign. Neck: Supple, trachea midline. Cardiovascular: Regular rate and rhythm. Lungs: Grossly clear. Abdomen: Soft, nontender, nondistended. Extremities: Moves all extremities. Neurologic: Grossly intact. Skin: No signs of jaundice. Vascular: All extremities perfused. LABORATORY: No labs this morning but reviewed labs from yesterday. ASSESSMENT AND PLAN: A 63-year-old female with GI bleed. GI bleed. At this time seems like it might be related to her previous anastomosis, but looks like it is superficial. Hopefully, this will be self-limiting and stop on its own. Continue current treatments. We will monitor. cc: Darin Cortez MD
[2018-11-08 07:44] LABS: HEMATOCRIT 29.4 % (37.0-47.0); HEMOGLOBIN 9.5 g/dL (12.0-16.0); MCH 27.7 PG (27-31); MCHC 32.3 g/dL (33-37); MCV 85.7 FL (81-99); MPV 12.1 FL (7.4-10.4); RBC 3.43 XMIL (4.2-5.4); RDW 14.8 % (11.5-14.5); WBC 4.3 X1000 (4.8-10.8)
--- NOTE | 2018-11-08 08:43 | HEMO/ONC PROGRESS NOTE ---
DATE: 11/08/2018 SUBJECTIVE: The patient denies anymore bloody bowel movements. The patient had colonoscopy yesterday. The patient has no new complaints. OBJECTIVE: Vital Signs: Temperature 98.3 degrees, heart rate 73, respiratory rate 17, blood pressure 155/79, saturating 99% on room air. General: Patient is awake, lying in bed, no acute distress noted. HEENT: Anicteric. Pupils [place]. Mucous membranes appear to be moist. Cardiovascular: S1, S2. Regular rate and rhythm. Chest: Bilateral breath sounds, clear to auscultation. Abdomen: Soft, mildly tender. Bowel sounds present all 4 quadrants. Neurologic: Alert and oriented x3. No focal deficits noted. LABORATORY DATA: White blood cell count 4.3, hemoglobin 9.5, hematocrit 29.4, platelets are 131,000. Potassium 3.9, BUN 5, creatinine 0.7. ASSESSMENT AND PLAN: 1. Gastrointestinal bleeding: The patient had EGD/colonoscopy yesterday, showed superficial irritation and erosion on her previous anastomosis. Continue recommendations per Gastroenterology at this time. Continue to monitor closely. 2. Anemia: Hemoglobin and hematocrit stable today at 9.5 and 29.4. The patient will need another dose of IV iron scheduled for Tuesday. Continue to monitor closely and transfuse as needed. 3. History of deep venous thrombosis: Continue sequential compression devices. Continue to have patient get out of bed as much as possible. Dictated by LARISSA Montero for Matt Chaudhary MD Patient seen and examined. As above. No further bleeding. H and H is slowly improving. She is status post IV iron 1. Plan for follow-up in the clinic and repeat IV iron. I will sign off. Please call with questions. Matt Chaudhary M.D. [facility]
[2018-11-08] MEDS: XANAX PO SCH ×4 (09:17→21:08)
--- NOTE | 2018-11-08 11:33 | PROVIDER PROGRESS NOTE ---
Progress Note SUBJECTIVE: No acute overnight events. No N/V/F, CP, SOB, abdominal pain. Brown stool this AM. She tells me that she has been on full dose aspirin for the last 2 years after post-operative DVT. She denies recurrent DVT or history of known hypercoagulable state. OBJECTIVE: Last Vital Signs Temp 98.1 F 11/08/18 08:00 Pulse 55 L 11/08/18 11:02 Resp 14 11/08/18 11:02 BP 126/64 11/08/18 11:02 Pulse Ox 97 11/08/18 11:02 Height 5 ft 9 in Weight 142 lb 11.2 oz GEN: awake, alert, NAD HEENT: anicteric, MMM CV: RRR, no murmurs PULM: CTAB, no wheezing ABD: soft NT/ND, NABS EXT: no cce NEURO: nonfocal LABS: 11/08/18 11/08/18 05:40 05:40 WBC 4.30 L Hgb 9.5 L Plt Count 131 Sodium 147 H Potassium 3.9 Chloride 115 H Carbon Dioxide 25 BUN 5 L D Creatinine 0.7 PROCEDURE DATE: 11/07/2018 PROCEDURES: 1. Colonoscopy and biopsy. 2. Esophagogastroduodenoscopy. PREOPERATIVE DIAGNOSES: Nausea, vomiting, diarrhea, and blood in the stool. POSTOPERATIVE DIAGNOSES: 1. Status post colectomy with sigmoid colon anastomosis. 2. Superficial anastomotic erosions, biopsied. 3. Normal EGD. 4. No evidence of active colitis. Ms. Ping Avalos is a 63 year old woman with history remote subtotal colectomy c/b anastomotic stricture requiring revision 2 years ago c/b provoked DVT s/p IVF placement, previously on coumadin, who was admitted with hematochezia. She has severe CRISTINA. Also has history of B12 deficiency followed by hematology. EGD yesterday was unremarkable. Colonoscopy showed superficial erosions at sigmoid-ileal anastomosis. She says she has been on aspirin 325mg for the last several months since stopping coumadin. #Hematochezia: secondary to colon erosions #Colonic anastomotic erosions: likely explains patient iron deficiency anemia; recommend PPI PO once daily #CRISTINA: continue IV iron as per Dr. Chaudhary #History of provoked DVT: recommend discontinuing aspirin all-together given history of post-operative DVT; defer decision to hematology Patient ok to be discharged from GI perspective. Follow-up with GI as needed
[2018-11-08] MEDS: PROTONIX IV SCH ×2 (13:34→23:53)
[2018-11-08] MEDS: NS 1,000 ML IV SCH (13:35)
--- NOTE | 2018-11-08 15:32 | PROGRESS NOTE ---
DATE: 11/08/2018 SUBJECTIVE: The patient is resting comfortably in bed. She is no longer having bloody bowel movements. She denies having any pain. She states that she will like to be discharged home. OBJECTIVE: Vital Signs: Temperature 98.3 degrees, blood pressure 120/75, heart rate 61, respirations 18, and O2 saturation 98% on room air. General: This is an elderly female lying in bed in no acute distress. Heart: S1, S2 normal. Regular rate and rhythm. Lungs: Clear to auscultation bilaterally. Abdomen: Positive bowel sounds. Soft, nontender, and nondistended. Extremities: No edema. No cyanosis. Neurologic: The patient is alert and oriented x3. LABORATORY: Hemoglobin 9.5, hematocrit 29, and platelets 131,000. Sodium 147, potassium 3.9, chloride 115, CO2 25, BUN 5, and creatinine 0.7. ASSESSMENT AND PLAN: 1. Gastrointestinal bleed. Resolved. We will continue with Protonix. We will transition this to oral. 2. Iron deficiency anemia. The patient is scheduled to undergo an iron infusion on Tuesday with Dr. Chaudhary. 3. History of a provoked DVT. Aware. The patient is off anticoagulation. 4. Disposition. The patient is stable for transfer out of the ICU. We will discontinue the normal saline. If the patient does well tonight, she can be discharged home tomorrow. cc: Dea Barragan MD MTDD
[2018-11-08] MEDS: SEROQUEL PO SCH (21:08)
[2018-11-09] MEDS: CARAFATE LIQUID PO SCH (05:45)
[2018-11-09] MEDS: PROTONIX IV SCH (05:46)
--- NOTE | 2018-11-09 06:24 | GENERAL SURGERY PROGRESS NOTE ---
DATE: 11/09/2018 SUBJECTIVE: Patient transferred out of the ICU. She has been resting comfortably. Her hematocrit is relatively stable. Reviewed notes from other providers. No immediate plans for any kind of intervention, at this time. It seems like clinically she is doing better. I will follow peripherally, anything changes we will be available if needed. cc: Darin Cortez MD
[2018-11-09 06:33] LABS: HEMATOCRIT 29.4 % (37.0-47.0); HEMOGLOBIN 9.3 g/dL (12.0-16.0); MCH 27.5 PG (27-31); MCHC 31.6 g/dL (33-37); MPV 12.2 FL (7.4-10.4); RBC 3.38 XMIL (4.2-5.4); RDW 14.7 % (11.5-14.5); WBC 4.31 X1000 (4.8-10.8)
[2018-11-09 07:02] LABS: AGAP 9; BUN 5 mg/dL (8-22); CALCIUM 8.1 mg/dL (8.8-10.2); CHLORIDE 114 mmol/L (98-107); COSMO 289; CREATININE 0.7 mg/dL (0.5-0.9); ESTIMATED GFR > 60; GLUCOSE 94 mg/dL (70-104); POTASSIUM 3.9 mmol/L (3.5-5.1); SODIUM 147 mmol/L (136-145); TCO2 24 mmol/L (25-35)
[2018-11-09 07:59] VITALS: BP 125/73
[2018-11-09] MEDS: XANAX PO SCH (09:33)
[2018-11-09] MEDS ORDERED: FLONASE NAS SCH (10:00)
[2018-11-09] MEDS ORDERED: SODIUM CHLORIDE 0.9% 10 ML ONE (10:07)
--- NOTE | 2018-11-10 15:01 | DISCHARGE SUMMARY ---
ADMISSION DATE: 11/05/2018 DISCHARGE DATE: 11/09/2018 FINAL DISCHARGE DIAGNOSES: 1. Hematochezia. 2. Severe iron deficiency anemia. 3. History of 2 colon resections. 4. Seasonal allergies. 5. Anxiety disorder. CONSULTATIONS: 1. General Surgery consultation with Dr. Cortez. 2. GI consultation with Dr. Boland. 3. Hematology consultation with Dr. Chaudhary. PROCEDURES: Colonoscopy with biopsy as well as an EGD which revealed a superficial anastomotic erosion which was biopsied. HOSPITAL COURSE: Ms Avalos is a 63-year-old female with a history of iron deficiency anemia and a prior colon resection who presented to the ER with bright red blood per rectum. The patient on admission was noted to have a hemoglobin of 6.5 with a hematocrit of 21. A CT of the abdomen and pelvis was done that revealed cholelithiasis as well as nephrolithiasis. The patient was admitted to the hospitalist service and admitted to the ICU. The patient received a blood transfusion. Iron studies were checked and the patient was noted to have an iron level of 11, percent saturation of 3 and a ferritin of 5. Hematology, GI and General Surgery were consulted during the patient's hospitalization. The patient was initially treated with a Protonix drip. The patient was taken for endoscopy on 11/07/2018 and it was noted that the patient had superficial anastomotic erosions which were biopsied. Following the procedure the patient had no further bleeding. Her hemoglobin and hematocrit remained stable. During this hospitalization the patient did receive an IV iron infusion and it has been recommended by Dr. Chaudhary that the patient will follow up in his clinic as scheduled for another IV iron treatment. On the day of discharge the patient was noted to have a hemoglobin of 9.3 with a hematocrit of 29 and she tolerated her diet without any difficulty. DISCHARGE MEDICATIONS: 1. Xanax 1 mg p.o. 3 times a day. 2. Protonix 40 mg p.o. daily. 3. Seroquel 50 mg 2 tablets oral at bedtime. 4. Vitamin B12 a 1000 mcg injected as directed. DISCHARGE DIET: Regular diet. ACTIVITY: As tolerated. FOLLOWUP INSTRUCTIONS: The patient will need to follow up with Dr. Molina as scheduled by his clinic. The patient is scheduled to follow up with Dr. Chaudhary on 11/13/2018 at 8:30 a.m. The patient will follow up with Dr. Bryce Núñez on 11/20/2018. cc: Bryce Núñez MD
== END 2018-11-09 11:22 | disposition home or self-care (01) | DRG 394 ==
LOC: SUPCPDRO → ED 11:50 → SUATTDRO 16:14 → EDIPHOLD 16:14 → ICU 11-06 12:24 → 4N 11-08 15:33
PROVIDERS: ATTEND Internal Medicine
CPT/HCPCS: 36430; 73630; 74176; 80048; 80053; 81001; 82270; 82550; 82607; 82728; 82746; 83540; 83550; 83735; 84484; 85014; 85018; 85025; 85027; 85610; 85730; 86850; 86900; 86901; 86920; 87045; 87046; 87324; 88305; 88313; 93005; 93971; 94761; 94799; 96365; 96366; 96368; 96375; 99285; A9270; C9113; J0131; J1439; J2270; J2405; J3420; J7030; J7050; P9016; S0164

== ENCOUNTER 2018-11-10 19:01 | Inpatient (IN) ==
[2018-11-10] MEDS ORDERED: ZOFRAN IV ONE (19:46)
[2018-11-10] MEDS ORDERED: NS 1,000 ML IV ONE (19:52)
[2018-11-10] MEDS ORDERED: FIORICET PO ONE (19:54)
[2018-11-10 20:25] LABS: BASO# 0.02 X1000 (0.0-0.2); BASO% 0.4 % (0.0-0.8); EOS# 0.09 X1000 (0.0-0.7); EOS% 1.7 % (0.0-10.0); HEMOGLOBIN 9.2 g/dL (12.0-16.0); LYMPH# 0.84 X1000 (1.2-3.4); LYMPH% 15.9 % (20.5-51.1); MCH 27.9 PG (27-31); MCHC 32.9 g/dL (33-37); MCV 84.8 FL (81-99); MONO# 0.31 X1000 (0.11-0.59); MONO% 5.9 % (1.7-9.3); NEUT# 4.02 X1000 (1.4-6.5); NEUT% 76.1 % (42.2-75.2); PLT 159 X1000 (130-400); RDW 15.4 % (11.5-14.5); WBC 5.28 X1000 (4.8-10.8)
[2018-11-10 20:29] LABS: INR 0.95; PROTIME 13.4 Seconds (11.0-16.0)
[2018-11-10 20:30] LABS: PTT 26.6 Seconds (22.3-41.8)
[2018-11-10 20:48] LABS: AGAP 13; ALB/GLOB RATIO 2.8; ALBUMIN 3.6 g/dL (3.5-5.0); ALKALINE PHOSPHATASE 50 U/L (32-104); BUN 15 mg/dL (8-22); CALCIUM 8.6 mg/dL (8.8-10.2); CHLORIDE 107 mmol/L (98-107); COSMO 284; CREATININE 0.7 mg/dL (0.5-0.9); ESTIMATED GFR > 60; GLUCOSE 97 mg/dL (70-104); GOT 17 U/L (10-30); GPT 12 U/L (10-36); POTASSIUM 3.9 mmol/L (3.5-5.1); SODIUM 142 mmol/L (136-145); TCO2 22 mmol/L (25-35); TOTAL BILIRUBIN 0.91 mg/dL (0.20-1.00); TOTAL PROTEIN 4.9 g/dL (6.3-8.3)
--- NOTE | 2018-11-10 22:28 | PROVIDER DOCUMENTATION ---
This chart was entered by Domi Dotson Scribe, acting as scribe for Sher Marcano MD. HPI-Abdominal Pain/GI Problem - General Chief Complaint: GI Bleed Stated Complaint: RECENT HOSP D/C, HAS RECTAL BLEEDING Time Seen by Provider: 11/10/18 19:32 Source: patient Allergies/Adverse Reactions: Patient Allergies Allergy/AdvReac Type Severity Reaction Status Date / Time hydromorphone [From Dilaudid] AdvReac VOMITING Verified 11/05/18 13:23 Home Medications: Home Medication List Medication Instructions Recorded Confirmed Last Taken Type Alprazolam 1 tab PO TID 11/05/18 11/05/18 Unknown History Cyanocobalamin (Vitamin B-12) 1,000 mcg IJ DIRECTED 11/05/18 11/05/18 Unknown History [Cyanocobalamin Injection] Quetiapine [Seroquel] 2 tab PO QHS 11/05/18 11/05/18 Unknown History Pantoprazole [Protonix] 40 mg PO DAILY@0700 #30 tab 11/09/18 Unknown Rx - History of Present Illness-ABD Nature of Presenting Problems: 63 yof c/o pt was d/c yest from er for hemorrhaging form rectum, received 5 units of blood and 1 unit of iron. pt states she started bleeding again today after not having a bm for 4 days. pt has had colon dis x2. pt has colonoscopy last week. pt also states she has swollen foot, nausea and headache. Review of Systems - Adult - REVIEW OF SYSTEMS - ADULT Constitutional: reports: no symptoms reported. denies: chills, fever Eyes: reports: no symptoms reported Ears, Nose, Mouth & Throat: reports: no symptoms reported Cardiovascular: reports: no symptoms reported Respiratory: reports: no symptoms reported Gastrointestinal: reports: see HPI, nausea, rectal bleeding. denies: abdominal pain, hematemesis, constipation, diarrhea, vomiting Genitourinary: reports: no symptoms reported Musculoskeletal: reports: see HPI, joint swelling (foot) Integumentary: reports: no symptoms reported Neurological: reports: see HPI, headache/migraines Psychiatric: reports: no symptoms reported Endocrine: reports: no symptoms reported Hematologic/Lymphatic: reports: no symptoms reported Allergic/Immunologic: reports: no symptoms reported All Other Systems: Reviewed and Negative Past History - Adult - PAST MEDICAL HISTORY-ADULT Review of Records: reports: Old Records Reviewed, Nursing Assessment Review, Medications Reviewed, Social history reviewed & non-contributory. Major Childhood Illnesses: reports: denies history Cardiovascular: reports: denies history Respiratory: reports: denies history Gastrointestinal: reports: denies history Obstetrical/Gynecological: reports: denies history Genitourinary: reports: denies history Musculoskeletal: reports: denies history Neurological: reports: denies history Psychiatric: reports: anxiety, depression Endocrine/Immune: reports: anemia, other (blood clots) Other Conditions: reports: denies history - PRIOR SURGERIES/PROCEDURES Surgical/Procedure History: reports: BTL, tonsillectomy, bowel surgery (colon resection), other (femoral stent) - IMMUNIZATION STATUS Childhood Immunizations: See Nurse Assessment Flu Vaccine: See Nurse Assessment - FAMILY HISTORY Family History: reviewed, not pertinent - SOCIAL HISTORY Smoking: other (former) Substance Use: alcohol Alcohol Use Frequency: occasionally Physical Exam-General - PHYSICAL EXAM-ADULT Initial Vital Signs Reviewed: Yes - CONSTITUTIONAL General Appearance: alert, mild distress - EYES Eyes: PERRL/EOMI - HEAD, EARS, NOSE, MOUTH & THROAT HENMT: normocephalic/atraumatic, moist mucous membranes, normal ENT inspection - NECK Neck: non-tender, full range of motion, supple, normal inspection - RESPIRATORY Respiratory: chest non-tender, lungs clear, normal breath sounds, no pleuratic chest pain, no respiratory distress, no accessory muscle use, other (cough on exam). negative: respiratory distress, decreased breath sounds, accessory muscle use, crackles, rales - CARDIOVASCULAR Cardiovascular: normal peripheral pulses, regular rate, rhythm - GASTROINTESTINAL (ABDOMEN) Abdominal Exam: normal bowel sounds, non tender, soft, no organomegaly, no pulsatile mass. negative: abdominal bruit, abnormal bowel sounds, distended, guarding - LYMPHATIC Lymphatic: no adenopathy - MUSCULOSKELETAL Back Exam: normal inspection, no CVA tenderness, no vertebral tenderness Extremity: normal range of motion, non-tender, normal inspection Peripheral Pulses: radial (R): 2+, radial (L): 2+ - SKIN Integumentary: normal color, normal turgor, warm/dry - NEUROLOGIC Neurologic: grossly normal, no motor/sensory deficits - PSYCHIATRIC Psych/Mental Status: normal mood/affect, normal thought content, normal thought process, oriented x 3 Progress - PLAN OF CARE/RESULTS Progress/Plan/Lab Results: Vital Signs - 8 hr 11/10/18 19:13 Temperature 98.4 F Pulse Rate 99 H Respiratory Rate 14 Blood Pressure 131/91 O2 Sat by Pulse Oximetry 99 Orders Category Date Time Status CBC WITH ELECTRONIC DIFF [HEME] Stat Lab 11/10/18 19:16 Uncollected COMPREHENSIVE METABOLIC PANEL [CHEM] Stat Lab 11/10/18 19:16 Uncollected PROTIME WITH INR [COAG] Stat Lab 11/10/18 19:16 Uncollected PTT [COAG] Stat Lab 11/10/18 19:16 Uncollected TYPE & SCREEN [BBK] Stat Lab 11/10/18 19:16 Uncollected GI Bleed (possible) Stat Oth 11/10/18 19:15 Ordered Result Diagrams: 11/10/18 19:58 11/10/18 19:58 Departure - Departure Date of Disposition Decision: 11/10/18 Time of Disposition Decision: 22:27 DIAGNOSIS: GI bleed Qualifiers: GI bleed type/associated pathology: unspecified gastrointestinal hemorrhage type Qualified Code(s): K92.2 - Gastrointestinal hemorrhage, unspecified Disposition: ADMITTED INPATIENT 09 Certified Medical Emergency: Emergent Condition: Stable Referrals and Follow-Ups: Bryce Núñez MD [Primary Care Provider] - - Critical Care Note This patient required my direct & personal management of CC.: No Attestation - Physician/ JONO Attestation Patient care was provided by Advanced Practice Provider:: No The physician spent face to face time with patient:: Yes Advanced Practice Provider documentation review:: Supervising physician onsite and consulted in the evaluation and care of this patient. The physician did have a face to face encounter with the patient. This chart was documented by the indicated scribe, (Domi Dotson Scribe) and accurately reflects the services I performed and decisions made by me, Sher Marcano MD, as attested by the provider's signature.
--- NOTE | 2018-11-11 00:59 | HISTORY AND PHYSICAL ---
PRIMARY CARE PHYSICIAN: Dr. Núñez. CHIEF COMPLAINT: Blood in stools. HISTORY OF PRESENTING ILLNESS: This is a 63-year-old female with a previous history of ischemic bowel, DVT, PE, who recently was just discharged from the hospital after evaluation for a GI bleed yesterday. Presents today with complaint of about 4 bouts of bloody stools. She states it was bright red blood per rectum. She states that she was feeling weak and subsequently had come to the emergency department. At the ED, she was evaluated. Due to her presenting symptoms, it was thought that she would need admission for further management. At the time of my examination, she had denied any headache, fever, chills, chest pain, shortness of breath, but complained of bloody stools and not feeling well. PAST MEDICAL HISTORY: Includes DVT, PE, ischemic bowel. PAST SURGICAL HISTORY: Colon resection, cataract surgery. ALLERGIES: Dilaudid. CURRENT MEDICATIONS: Include Xanax 1 mg p.o. t.i.d., vitamin B12 injections monthly, pantoprazole 40 mg p.o. daily, Seroquel 100 mg p.o. at bedtime. SOCIAL HISTORY: She is a former smoker. No history of alcohol or illicit drug use. FAMILY HISTORY: No history of coronary disease. REVIEW OF SYSTEMS: Fourteen point review of system as listed in HPI. Other systems negative. PHYSICAL EXAMINATION: GENERAL: Cooperative, friendly female. She is resting comfortably now. VITAL SIGNS: Temperature 98.4 degrees, pulse 99, respiration 14, blood pressure 131/91. HEENT: Atraumatic, normocephalic. Extraocular movements intact. PERRLA. NECK: Supple. CHEST: Clear to auscultation. CARDIOVASCULAR: Regular rate and rhythm. S1, S2. ABDOMEN: Soft. Positive bowel sounds. EXTREMITIES: No edema. NEUROLOGIC: She is awake, alert, oriented x3. GENITOURINARY: No bladder distention. SKIN: Warm. LABORATORIES AND STUDIES: WBC 5.28, hemoglobin 9.2, hematocrit 28.0, platelets 159,000. Sodium 142, potassium 3.9, chloride 107, CO2 is 22, BUN is 15, creatinine 0.7, glucose 97. ASSESSMENT: A 63-year-old female with a history of ischemic bowel, deep venous thrombosis, pulmonary embolism, who was just discharged from hospital yesterday after evaluation for gastrointestinal bleed. She presents again with complaint of about 4 bouts of bloody stools mostly bright red blood per rectum. She was evaluated in the ED and due to her presenting symptoms she will need admission for further management. 1. Bright red blood per blood per rectum/lower gastrointestinal bleed. 2. History of deep venous thrombosis, pulmonary embolism. PLAN: 1. We will admit patient to medical floor with telemetry. 2. We will keep patient NPO. 3. We will consult General Surgery who has followed her previously. 4. We will type and screen 2 units packed red blood cells. 5. We will continue to follow, and reassess and make further recommendation based on patient's clinical course. cc: Charlie Parker MD
[2018-11-11 01:21] LABS: AGAP 10; BUN 17 mg/dL (8-22); CALCIUM 8.2 mg/dL (8.8-10.2); CHLORIDE 106 mmol/L (98-107); COSMO 281; CREATININE 0.7 mg/dL (0.5-0.9); ESTIMATED GFR > 60; GLUCOSE 96 mg/dL (70-104); POTASSIUM 3.5 mmol/L (3.5-5.1); SODIUM 140 mmol/L (136-145); TCO2 24 mmol/L (25-35)
[2018-11-11] MEDS ORDERED: ZOFRAN IV PRN (02:15)
[2018-11-11 02:31] LABS: HEMATOCRIT 26.7 % (37.0-47.0); HEMOGLOBIN 8.4 g/dL (12.0-16.0)
[2018-11-11] MEDS: PROTONIX IV SCH (02:57)
[2018-11-11] MEDS: SODIUM CHLORIDE 0.9% INJ SCH (02:57)
[2018-11-11 06:15] LABS: HEMATOCRIT 22.7 % (37.0-47.0); HEMOGLOBIN 7.3 g/dL (12.0-16.0); MCH 28.4 PG (27-31); MCHC 32.2 g/dL (33-37); MCV 88.3 FL (81-99); MPV 11.7 FL (7.4-10.4); RBC 2.57 XMIL (4.2-5.4); RDW 15.7 % (11.5-14.5); WBC 4.97 X1000 (4.8-10.8)
[2018-11-11] MEDS: NS 1,000 ML IV SCH ×3 (08:14→23:44)
[2018-11-11 10:22] LABS: HEMATOCRIT 26.1 % (37.0-47.0); HEMOGLOBIN 8.4 g/dL (12.0-16.0)
--- NOTE | 2018-11-11 10:30 | GENERAL SURGERY CONSULTATION ---
DATE: 11/11/2018 REQUESTING PHYSICIAN: Hospitalist service. REASON FOR CONSULT: Consult concerning GI bleed. HISTORY OF PRESENT ILLNESS: A 63-year-old female, who was recently discharged yesterday from the hospital with a GI bleed. She has continued to have bloody stools. She was readmitted. She reports some cramping abdominal pain. She had a recent colonoscopy that showed some irritation at a previous anastomosis. She has had multiple abdominal surgeries. She has been admitted for resuscitation and evaluation. I was asked to weigh an opinion. PAST MEDICAL HISTORY: DVT, PE, ischemic bowel. PAST SURGICAL HISTORY: Includes colon resection, cataract surgery. ALLERGIES: Dilaudid. CURRENT MEDICATIONS: Reviewed. SOCIAL HISTORY: Former smoker. FAMILY HISTORY: No history of coronary artery disease. REVIEW OF SYSTEMS: A full 10 point review of systems obtained and negative except as specified in HPI. PHYSICAL EXAM: Vital Signs: Patient is currently afebrile, although most recent blood pressure is 88/57, pulse is 69. O2 saturation 99%. General: No acute distress. Alert, interactive female. Looks stated age. HEENT: Normocephalic, atraumatic. Pupils equal, round, reactive to light. Mucous membranes moist. Oropharynx benign. Neck: Supple, trachea midline. Cardiovascular: Regular rate and rhythm. Lungs: Grossly clear. Abdomen: Soft. Some mild discomfort but no peritoneal signs. Extremities: Moves all extremities. Neurologic: Grossly intact. Skin: No signs of jaundice. Vascular: All extremities perfused. LABORATORY: Most recent hematocrit is 22. ASSESSMENT AND PLAN: A 63-year-old female with recurrent gastrointestinal bleed. Recurrent GI bleed. At this time, I think we need to get Gastroenterology involved for colonoscopy. She has bled previously at her stricture for anastomosis. I would like to try to do a colonoscopy and see if we can manage it that way before planning on doing what sounds like a 3rd or 4th abdominal resection on the patient. Will continue to monitor. Her blood pressure has gone down a little bit, and so has her hematocrit. Will need to follow. I will discuss with the hospitalist. cc: Darin Cortez MD
[2018-11-11] MEDS ORDERED: XYLOCAINE-MPF 2% ONE ×2 (10:43→11:16)
[2018-11-11] MEDS ORDERED: ROBINUL ONE (10:43)
[2018-11-11] MEDS ORDERED: FENTANYL ONE (10:44)
[2018-11-11] MEDS ORDERED: DIPRIVAN 1% ONE ×2 (10:44→11:16)
--- NOTE | 2018-11-11 11:45 | PROGRESS NOTE ---
DATE: 11/11/2018 INTERVAL HISTORY: Ms. Avalos was admitted for bright red blood per rectum likely because of acute lower gastrointestinal bleed, which had restarted after her discharge the day prior. The patient was also feeling weak and dizzy, and that is why she came back to the emergency room. Currently, she is complaining of left foot pain and is feeling anxious. VITALS: Temperature 98.5 degrees, pulse 69, respiratory rate 12, blood pressure 130/88, saturating 100% on room air. PHYSICAL EXAMINATION: General: Patient is anxious, teary, not in any acute distress. Mouth: Oral cavity is moist. Respiratory: Air entry equal. No wheeze, rhonchi, crackles. Cardiovascular: S1, S2 normal. No murmur, rub, or gallop. Abdomen: Soft. There is an infraumbilical scar. Mildly tender in hypogastric region. Active bowel sounds. Rectal Examination: No fissure or external hemorrhoid I could appreciate. She, though, just had bloody bowel movement with blood clots prior to my encounter. Extremities: Left foot is slightly swollen as compared to right. Intact dorsalis pedis and posterior tibial pulses. There is localized tenderness, however I could not pinpoint over left foot without any erythema or warmth. LABS: Suggestive of hemoglobin which dropped from 9.2 to 7.3. No leukocytosis. Normal platelet count. Normal coagulations. Normal electrolytes. Normal kidney function. MICROBIOLOGY: No new microbiological data. X-RAYS: No new imaging data. ASSESSMENT AND PLAN: 1. Acute lower gastrointestinal bleeding likely from the site of anastomosis of large intestine and small intestine that she had underwent twice in the past. Her last colonoscopy did detect erosions around the anastomotic site. Continue blood transfusion 2 units as has already been ordered with intravenous fluid resuscitation. 2. Acute blood loss anemia. Gastroenterology and Surgery on board. Potentially planning repeat colonoscopy. 3. Left foot pain. She does not have any warmth, erythema, though it is tender. I will give her some topical anti-inflammatory medications. I do not see any evidence of gout. 4. History of anxiety. Continue patient's home Seroquel and lorazepam. 5. Others. The patient had history of ischemic colitis in 2006 requiring colon resection and small bowel obstruction requiring another colon resection in 2005. Prior history of left lower extremity deep vein thrombosis requiring inferior vena cava filter and 2 years of Coumadin in 2016. cc: Dale Winslow MD
[2018-11-11] MEDS ORDERED: EPINEPHRINE SYRINGE ONE (12:07)
[2018-11-11] MEDS: CENTRUM SILVER PO SCH (14:28)
[2018-11-11] MEDS: ICAR-C PO SCH ×2 (14:29→19:59)
[2018-11-11] MEDS: XANAX PO SCH ×4 (14:29→19:59)
--- NOTE | 2018-11-11 15:03 | OPERATIVE NOTE ---
PROCEDURE DATE: 11/11/2018 ATTENDING PHYSICIAN: Dr. Winslow PRIMARY CARE DOCTOR: Dr. Bryce Núñez TITLE OF PROCEDURE: Flexible sigmoidoscopy with hemostasis. PREOPERATIVE DIAGNOSIS: Rectal bleeding. She was recently discharged 2 days ago. She started having rectal bleeding. Her hematocrit dropped to 22%, she got 2 units blood transfusion. Recently, last week she also had a blood transfusion for recurrent symptoms of rectal bleeding. She had a flexible sigmoidoscopy done at that time, per Dr. Beck. It showed evidence of ulcers at the anastomosis, but no active bleeding was noted. We were asked to perform a flexible sigmoidoscopy for finding the source of GI bleeding. POSTOPERATIVE DIAGNOSES: 1. Anastomotic ulceration circumferential with active oozing at 6 o'clock position. This was injected with 8 mL of epinephrine in quadrants, and hemoclip was placed with good hemostasis. 2. Old blood noted in the remnant abdomen, which is about 30 cm. 3. Normal small intestine up to 55 cm from the anus. ESTIMATED BLOOD LOSS: Minimal. COMPLICATIONS: None. ANESTHESIA: Monitored anesthesia care by the anesthesiologist. SPECIMENS: None. DESCRIPTION OF PROCEDURE: After informed consent, the patient explained the risks, benefits, indications, and alternatives to the procedure, the patient was prepared for colonoscopy and flexible sigmoidoscopy. The risks of the procedure, including infection, bleeding, pain, trauma to the surrounding structures, perforation, , were explained to the patient among others and she acknowledged this and agreed to proceed with the procedure. The patient was brought to the OR. She was turned in the left lateral position, rectal exam was normal, showed normal rectal tone. No masses were felt. There was some old blood on the examining finger. The colonoscope was introduced through the anal verge and was traversed all the way up to the small bowel up to 55 cm from the anal verge. There was evidence of old blood at the rectum and sigmoid. We identified the anastomosis at 33 cm from the anal verge, we found circumferential ulceration at the anastomosis. We were able to pass the anastomosis into the small bowel. The small bowel above the anastomosis was normal, there was no evidence of any active bleeding or fresh or old blood in that area. The bleeding was coming from anastomotic ulcer. We washed the ulcer base and we found the oozing at the base of the ulcer at 6 o'clock position. We were able to control bleeding by injecting epinephrine. We injected about 8 mL of epinephrine in 4 quadrants, followed by hemoclip placement with good hemostasis. We observed the area for a minute after the clip placement, there was no more active bleeding. The air was removed as the scope was withdrawn. The patient tolerated the procedure well. Currently monitored in the OR in stable condition. RECOMMENDATIONS: 1. The patient will be n.p.o. except ice chips for next 24 to 48 hours. We will see how she does. We will transfuse her to keep hematocrit more than 27%. We will call the hospitalist team to possible transfer her to [facility] for interventional radiology-directed angiography and possible coiling as it appears to be a large vessel under the anastomotic area. The patient did have a history of anastomosis of the colon done 2-1/2 years ago when she had colon resection. 2. In the meanwhile, we will keep her on Protonix, IV fluids, and IV PPIs. 3. The patient does have anxiety so she will continue on antianxiety medications per the primary care team. 4. Dr. Cortez was present during the case. I also discussed the findings with him. He will be on standby in case the patient needs revision of anastomosis. Since the patient has diffuse circumferential ulceration in the anastomosis, she could be a candidate for anastomotic revision. Dr. Cortez is on the case and he aware of the findings. 5. We will follow along. The above plans were discussed with the patient upon waking up and all questions answered. I spoke with the hospitalist team. cc: MD Bryce Reinoso MD Matthew L. Figh, MD Omar J. Sosa-Chirinos, MD MTDD
[2018-11-11 16:21] LABS: BASO# 0.02 X1000 (0.0-0.2); BASO% 0.4 % (0.0-0.8); EOS# 0.07 X1000 (0.0-0.7); EOS% 1.2 % (0.0-10.0); HEMATOCRIT 30.5 % (37.0-47.0); HEMOGLOBIN 10.1 g/dL (12.0-16.0); IMM GRAN# 0.02 X1000 (0.0-0.04); IMM GRAN% 0.4 % (0.0-0.5); LYMPH# 0.68 X1000 (1.2-3.4); LYMPH% 12.1 % (20.5-51.1); MCH 28.5 PG (27-31); MCHC 33.1 g/dL (33-37); MCV 85.9 FL (81-99); MONO# 0.29 X1000 (0.11-0.59); MONO% 5.2 % (1.7-9.3); MPV 12.3 FL (7.4-10.4); NEUT# 4.54 X1000 (1.4-6.5); NEUT% 80.7 % (42.2-75.2); PLT 129 X1000 (130-400); RBC 3.55 XMIL (4.2-5.4); RDW 15.5 % (11.5-14.5); WBC 5.62 X1000 (4.8-10.8)
[2018-11-11] MEDS: SEROQUEL PO SCH (19:59)
[2018-11-11] MEDS: PERIDEX MT SCH (20:00)
[2018-11-11] MEDS: TYLENOL PO PRN (21:54)
[2018-11-11 22:24] LABS: BASO# 0.03 X1000 (0.0-0.2); BASO% 0.7 % (0.0-0.8); EOS# 0.08 X1000 (0.0-0.7); HEMATOCRIT 28.2 % (37.0-47.0); HEMOGLOBIN 9.2 g/dL (12.0-16.0); LYMPH# 0.86 X1000 (1.2-3.4); LYMPH% 21.4 % (20.5-51.1); MCH 27.6 PG (27-31); MCHC 32.6 g/dL (33-37); MCV 84.7 FL (81-99); MONO# 0.23 X1000 (0.11-0.59); MONO% 5.7 % (1.7-9.3); MPV 12.4 FL (7.4-10.4); NEUT# 2.82 X1000 (1.4-6.5); NEUT% 70.2 % (42.2-75.2); PLT 115 X1000 (130-400); RBC 3.33 XMIL (4.2-5.4); RDW 15.4 % (11.5-14.5); WBC 4.02 X1000 (4.8-10.8)
[2018-11-12] MEDS: PROTONIX IV SCH (04:08)
--- NOTE | 2018-11-12 07:21 | GENERAL SURGERY PROGRESS NOTE ---
DATE: 11/12/2018 SUBJECTIVE: The patient says she is doing okay. She has not had any bloody bowel movements, but she has not had another bowel movement since her colonoscopy. I was present during the colonoscopy and saw the described lesions. OBJECTIVE: Vital Signs: The patient is currently afebrile. Her vital signs are stable. General: No acute distress. HEENT: Normocephalic, atraumatic. Pupils equal, round, reactive to light. Mucous membranes moist. Oropharynx benign. Neck: Supple. Trachea midline. Cardiovascular: Regular rate and rhythm. Lungs: Grossly clear. Abdomen: Soft, nontender, nondistended. Extremities: Moves all extremities. Neurologic: Grossly intact. Skin: No signs of jaundice. Vascular: All extremities perfused. LABORATORY DATA: Most recent hematocrit is 28, which is down slightly. ASSESSMENT AND PLAN: A 63-year-old with recurrent gastrointestinal bleed. Recurrent gastrointestinal bleed. At this time, I am okay with her having a clear liquid diet. If she does bleed, may need to consider sending her to [place] for angio for coiling. Last resort would be resection of the anastomosis. She wants to hold off on this. Will continue to follow while she is in the hospital. cc: Darin Cortez MD
[2018-11-12] MEDS: CENTRUM SILVER PO SCH (08:06)
[2018-11-12] MEDS: ICAR-C PO SCH (08:06)
[2018-11-12] MEDS: PERIDEX MT SCH ×2 (08:06→21:51)
[2018-11-12 09:26] LABS: HEMATOCRIT 28.9 % (37.0-47.0); HEMOGLOBIN 9.4 g/dL (12.0-16.0); MCH 28.1 PG (27-31); MCHC 32.5 g/dL (33-37); MCV 86.5 FL (81-99); MPV 12.1 FL (7.4-10.4); RBC 3.34 XMIL (4.2-5.4); RDW 15.9 % (11.5-14.5); WBC 3.48 X1000 (4.8-10.8)
[2018-11-12] MEDS: TYLENOL PO PRN ×2 (10:40→21:51)
[2018-11-12] MEDS: XANAX PO SCH ×2 (12:46→21:50)
--- NOTE | 2018-11-12 15:53 | PROGRESS NOTE ---
DATE: 11/12/2018 INTERVAL HISTORY: Ms. Avalos underwent colonoscopy yesterday which had detected a superficial ulcer almost extending up to submucosa circumferentially at the ileocolic anastomosis site which was oozing so epinephrine was injected and a hemoclip was applied. The patient tolerated the procedure well. She has not had any bowel movement since then. She has been started on a clear liquid diet since morning time. SUBJECTIVE: She denies any nausea, vomiting. She has not had a bowel movement. She has been tolerating diet okay. No abdominal pain. We discussed extensively about her findings, possible options, and I answered all of her questions. OBJECTIVE: Vital Signs: Temperature 98.6 degrees, pulse 72, respiratory rate 20, blood pressure 112/62, saturating 97% on room air. General: She does not appear in any acute distress. HEENT: Oral cavity is moist. Mild conjunctival pallor. No cyanosis, clubbing, or icterus. Cardiovascular: S1, S2 normal. No murmur, rub, or gallop. Abdomen: Soft. There is an infraumbilical scar mild. No tenderness. Active bowel sounds. Extremities: Left foot is slightly swollen as compared to the right. Decreased tenderness. Intact dorsalis pedis and posterior tibial pulses. LABS: Suggestive of WBC of 3.4, hemoglobin of 9.4, platelet count of 110,000. No BMP. ASSESSMENT AND PLAN: 1. Acute lower gastrointestinal bleeding from the anastomosis of previous ileocolic anastomosis site ulceration, status post epinephrine injection and hemoclip application by Gastroenterology. Continue clear liquid diet as per Surgery's recommendation. She is status post 2 units of PRBC this admission. She has had multiple PRBC transfusions on previous admission as well. Continue to monitor CBC. If she bleeds again, then the plan is to transfer her to [facility] for possible interventional, radiology intervention. I will hopefully start the process early tomorrow morning and keep them in the loop. If they accept the patient, I will transfer her tomorrow. 2. Acute blood-loss anemia. Currently stable. The patient has not been tolerating oral iron well, which I will discontinue since the patient becomes constipated and she does not absorbs well. She should follow up with [facility] for iron infusion. With home, she already has a scheduled appointment set up. I will also keep her on MiraLAX b.i.d. to avoid any constipation. 3. Others. Continue patient's home Seroquel and lorazepam for anxiety. 4. Left lower extremity swelling. Follow up ultrasound to rule out any new deep venous thrombosis and continue sequential compression devices for DVT prophylaxis. 5. Others. She did have prior history of ischemic colitis in 2007 requiring colon resection and small bowel obstruction requiring another colon resection in 2016. She also had prior history of left lower extremity DVT requiring IVC filter 2 years ago. 6. Disposition. Patient remains inside the hospital for monitoring of her bowel function and hemoglobin. cc: Dale Winslow MD MTDDeangelo
[2018-11-12 18:33] LABS: HEMATOCRIT 27.3 % (37.0-47.0); HEMOGLOBIN 8.8 g/dL (12.0-16.0); MCH 27.8 PG (27-31); MCHC 32.2 g/dL (33-37); MCV 86.1 FL (81-99); MPV 12.4 FL (7.4-10.4); RBC 3.17 XMIL (4.2-5.4); RDW 15.9 % (11.5-14.5); WBC 4.11 X1000 (4.8-10.8)
--- NOTE | 2018-11-12 19:00 | GASTROENTEROLOGY PROGRESS NOTE ---
DATE: 11/12/2018 SUBJECTIVE: Resting in bed. The patient is feeling better. She denies any bleeding since the last 24 hours. Hematocrit is stabilized. She denies abdominal pain. Denies any nausea or vomiting. Denies any fever, rigors, chills, OBJECTIVE: Vital Signs: Temperature 98.6, pulse of 72, respiratory rate, blood pressure 112/62, saturating 97% on room air. General Appearance: Moderately nourished, lying in bed, in no acute distress. HEENT: Pale pallor. No icterus. Neck: Supple. Abdomen: Soft, nontender. No guarding. Extremities: No cyanosis, clubbing. Neurologic: Alert, awake, oriented. LABS: Hemoglobin and hematocrit is 9.4 and 40.8, white count 3.4, platelet count of 110,000. IMPRESSION AND PLAN: 1. Gastrointestinal bleeding secondary to anastomotic ulceration at the prior ileal colonic anastomosis. This was treated with epinephrine and hemoclip placement with good hemostasis. We will continue to watch her hemoglobin and hematocrit and transfuse as needed. 2. History of constipation. On discharge patient will need to be on MiraLAX once daily for constipation. 3. Anemia. Watch for now. Transfuse as needed. 4. If the patient starts rebleeding, then she may need to be transferred to [facility] for Interventional Radiology for selective angiography and possible coiling. 5. Dr. Cortez is on board. She may eventually need an anastomosis revision if the ulcer is nonhealing. We will recheck the ulcer in 3 months. 6. Anxiety. Patient is being treated with Seroquel. 7. We will continue Iron C b.i.d., multivitamin once daily. 8. We will start on clear liquid diet and advance slowly in 24 to 48 hours. 9. The above plans discussed with the patient. All questions answered. Please call us if any questions. cc: MD Bryce Reinoso MD MTDD
[2018-11-12] MEDS ORDERED: MIRALAX PO SCH (21:00)
[2018-11-12] MEDS: SEROQUEL PO SCH (21:50)
[2018-11-13] MEDS ORDERED: CYANOCOBALAMIN IM SCH
[2018-11-13] MEDS: SODIUM CHLORIDE 0.9% INJ SCH (03:56)
[2018-11-13] MEDS: PROTONIX IV SCH (03:56)
[2018-11-13 07:21] LABS: AGAP 5; BASO# 0.02 X1000 (0.0-0.2); BASO% 0.6 % (0.0-0.8); BUN 9 mg/dL (8-22); CALCIUM 8.1 mg/dL (8.8-10.2); CHLORIDE 113 mmol/L (98-107); COSMO 280; CREATININE 0.7 mg/dL (0.5-0.9); EOS# 0.13 X1000 (0.0-0.7); EOS% 3.8 % (0.0-10.0); ESTIMATED GFR > 60; GLUCOSE 98 mg/dL (70-104); HEMATOCRIT 26.9 % (37.0-47.0); HEMOGLOBIN 8.7 g/dL (12.0-16.0); LYMPH# 0.74 X1000 (1.2-3.4); LYMPH% 21.4 % (20.5-51.1); MCH 28.2 PG (27-31); MCHC 32.3 g/dL (33-37); MCV 87.3 FL (81-99); MONO# 0.29 X1000 (0.11-0.59); MONO% 8.4 % (1.7-9.3); MPV 12.7 FL (7.4-10.4); NEUT# 2.27 X1000 (1.4-6.5); NEUT% 65.8 % (42.2-75.2); PLT 117 X1000 (130-400); POTASSIUM 3.7 mmol/L (3.5-5.1); RBC 3.08 XMIL (4.2-5.4); RDW 16.2 % (11.5-14.5); SODIUM 141 mmol/L (136-145); TCO2 23 mmol/L (25-35); WBC 3.45 X1000 (4.8-10.8)
[2018-11-13] MEDS ORDERED: ICAR-C PO SCH (09:00)
--- NOTE | 2018-11-13 09:04 | GENERAL SURGERY PROGRESS NOTE ---
DATE: 11/13/2018 SUBJECTIVE: Patient seems to be doing okay. She did have a bowel movement. She says it looked like old blood, but otherwise has been doing okay. OBJECTIVE: Vital Signs: Patient is currently afebrile. Her vital signs are stable. General: No acute distress. HEENT: Normocephalic, atraumatic. Pupils equal, round, reactive to light. Mucous membranes moist. Oropharynx benign. Neck: Supple, trachea midline. Cardiovascular: Regular rate and rhythm. Lungs: Grossly clear. Abdomen: Soft nondistended, really minimal discomfort. Extremities: Moves all extremities. Neurologic: Grossly intact. Skin: No signs of jaundice. Vascular: All extremities perfused. LABORATORY: Most recent hematocrit 27.3, which is essentially stable. ASSESSMENT AND PLAN: A 63-year-old female with recurrent gastrointestinal bleed. At this time, she seems to be relatively stable. Hematocrit seems to be stable. We will monitor. I agree with Dr. Boland. She probably does need revision of her anastomosis, but we will discuss this further with the patient as an outpatient. cc: Darin Cortez MD
[2018-11-13] MEDS ORDERED: LR 1,000 ML IV ONE (10:19)
[2018-11-13] MEDS: PERIDEX MT SCH (10:59)
[2018-11-13] MEDS: XANAX PO SCH (10:59)
[2018-11-13] MEDS: CENTRUM SILVER PO SCH (11:06)
[2018-11-13] MEDS: TYLENOL PO PRN (15:20)
[2018-11-13 15:46] VITALS: BP 127/95
--- NOTE | 2018-11-13 19:23 | GASTROENTEROLOGY PROGRESS NOTE ---
DATE: 11/13/2018 SUBJECTIVE: Patient is resting in bed. She is feeling better. She denies any new complaints. She had some liquid stools with old blood. She denies noticing any fresh blood in the stools. She is eating better. She denies any abdominal pain. OBJECTIVE: Vital Signs: Temperature 99.1, pulse of 65, respiratory rate 16, blood pressure 107/60. Saturating 98% room air. Body weight of 142 pounds. BMI 21.0 kg. General Appearance: Thinly built, lying in bed, in no acute distress. HEENT: Pale, with no icterus. Neck: Supple. Abdomen: Soft, nontender, nondistended. No guarding. Extremities: No cyanosis, clubbing. Neurologic: She is alert, awake, oriented x 3. LABS: Hemoglobin and hematocrit is 8.7 and 26.9, white count of 3.45, platelet count of 117,000. Sodium 140, potassium 3.7 chloride 113, bicarb 23, anion gap of 5, BUN of 9, creatinine of 0.7, glucose of 98, calcium is 8.1. IMPRESSION AND PLAN: 1. Anastomotic ulcer at the site of prior ileocolonic anastomosis from colon resection 2-1/2 years ago at [place]. We will continue to follow her blood counts. Transfuse as needed. We will also request the primary team to transfer her to [facility] for Interventional Radiology directed selective angiography with possible coiling if she rebleeds. Surgery is on board. Dr. Cortez is following. Eventually, she may need anastomosis revision if ulceration does not heal. 2. Anemia. Transfuse as needed. She will continue iron C b.i.d., multivitamin once daily. 3. Anxiety. She is on Xanax 1 mg p.o. t.i.d. 4. History of constipation. Continue MiraLAX twice daily. 5. Left lower extremity swelling. This is being managed by primary team. 6. She had a history of ischemic colitis in 2007 requiring colon resection and had a small bowel obstruction requiring another colon resection in 2016 at [place]. 7. History of left lower extremity DVT requiring IVC 2 years ago. 8. GI prophylaxis, PPIs. The above plans with the patient and all questions answered. I also spoke with Dr. Winslow. Please call us with any further questions. cc: MD Dr. Goldy Flanagan MD [facility]
--- NOTE | 2018-11-15 09:26 | DISCHARGE SUMMARY ---
ADMISSION DATE: 11/10/2018 DISCHARGE DATE: 11/13/2018 DISCHARGE DIAGNOSES: 1. Acute lower gastrointestinal bleed from anastomosis of previous ileocolic junction with anastomotic site circumferential superficial ulcer with suspected submucosal bleeding blood vessel. 2. Acute blood loss anemia. 3. Iron deficiency and vitamin B12 deficiency. 4. Anxiety. 5. Left lower extremity swelling with negative ultrasound for DVT. OTHER DIAGNOSES: 1. Previous history of ischemic colitis in 2006 requiring colectomy. 2. Previous history of suspected bowel obstruction requiring another colectomy in 2016. 3. History of left lower extremity DVT and pulmonary embolism requiring warfarin for 2 years and IVC filter. She is off warfarin since mid 2017. 4. History of anxiety with panic attacks. 5. History of inability to tolerate oral iron. CONSULTATION DURING HOSPITALIZATION: 1. Environmental Restoration Planner Dr. Gwyn Boland. 2. General Surgeon Dr. Darin Cortez. PROCEDURES DURING HOSPITALIZATION: 1. Colonoscopy on which had suggested anastomotic ulceration circumferentially with active oozing at 6:00 position which required injection of 8 mL of epinephrine in quadrants and application of hemoclip with good hemostasis, which was about 33 cm from the anal verge. Old blood in the remnant of abdomen. It also detected normal small intestine up to 55 cm from anus. 2. Blood transfusion during hospital admission between 11/10 and 11/13. She required 2 units between 11/05 and 11/09 she had required 5 units, and another EGD and colonoscopy during that. VITALS: At the time of discharge, temperature 98 degrees, pulse 61, respiratory rate 18, blood pressure 127/95, and saturating 100% on room air. PHYSICAL EXAMINATION: General: On discharge, did not appear in any acute distress. HEENT: Oral cavity was moist. Mild conjunctival pallor. No cyanosis, clubbing, or icterus. Lungs: Air entry bilaterally equal. No wheeze, rhonchi, or crackles. Cardiovascular: S1, S2 normal. No murmur, rub, or gallop. Abdomen: Soft and nontender. She had infraumbilical scar of previous laparotomy. Mild swelling of left foot as compared to right without any tenderness. Neurologic: Alert and oriented x3. LABORATORY: At the time of discharge, WBC 3.4, hemoglobin 8.7, and platelet count 117,000. Electrolytes suggest a potassium of 3.7, chloride of 113, BUN of 9, creatinine of 0.7, calcium of 8.1. SIGNIFICANT MICROBIOLOGY DURING HOSPITAL ADMISSION: None. SIGNIFICANT IMAGING DURING HOSPITAL ADMISSION: None though on CAT scan of the abdomen and pelvis performed on 11/05 had cholelithiasis and nephrolithiasis. Extremity venous study on 11/06 did not have any evidence of superficial venous or deep venous thrombosis. HOSPITAL COURSE SUMMARY: Ms. Avalos is a 63-year-old lady with previous history of ischemic colitis and bowel obstruction requiring colectomy in 2006 and 2015 with history of DVT and PE in 2016 requiring warfarin for 2 years and IVC filter, off anticoagulation for the last 6 to 8 months, came in with complaints of lower gastrointestinal bleed on 11/05/2018. She has had 2 admissions, one between 11/05 until 11/09 and when she was discharged on 11/09 she came back on 11/10 and remained inside the hospital until 11/13 when she was transferred to [facility]. During the initial hospital admission, she required 5 units of PRBC, EGD and colonoscopy. The EGD was essentially unremarkable. The colonoscopy had detected superficial anastomotic ulcer. She required 5 units of transfusion. At the time of discharge, she had a regular bowel movement and she was not bleeding and so she was discharged on 11/09. However, she came back on 11/10 with complaints of recurrence of lower gastrointestinal bleeding and associated weakness. During this second admission, she required 2 units of transfusion and repeat colonoscopy which had detected again anastomotic site ulcer about 30 cm from anal verge, which required epinephrine and hemoclip application. It was thought that she had a submucosal bleed which the printing sales representative could not approach. Surgery was also on board and considering 2 prior colectomies, interventional radiology guided procedure was recommended and so patient will be transferred to [facility] for IR procedure, and possible revision of colectomy. More than 30 minutes were spent in discharging this patient. All of her questions at the time of discharge were answered. DISCHARGE MEDICATIONS: At the time of discharge, the patient was receivin. Lactated Ringer at 100 mL/h. 2. Pantoprazole 40 mg IV q.12 hours. 3. Iron tablet 1 tablet b.i.d., though she is not tolerating oral iron. 4. Multivitamin with minerals. 5. Quetiapine 50 mg 2 tablets at nighttime. 6. Alprazolam 1 tablet 1 mg t.i.d. 7. Vitamin B12 1000 mcg daily. cc: Dale Winslow MD MTDD
--- NOTE | 2018-11-17 12:54 | Extremity Venous Study ---
PROCEDURE NAME: Venous U/S Left Leg - 11/12/2018 PROCEDURE: Left lower extremity venous duplex study. DATE OF STUDY: 11/13/2018. REFERRING PHYSICIAN: Dr. Winslow. READING PHYSICIAN: Dr. Colin. TEST SPECIALIST: Lashae. INDICATION: Left foot swelling. There is a history of DVT. There is comparison study on 11/05/2018. FINDINGS: The deep and superficial veins of the left lower extremity were imaged throughout their course. They are compressible, patent and without thrombus. There is reflux noted in the left superficial femoral and popliteal veins. INTERPRETATION: No DVT or SVT of the left lower extremity. There is reflux of the deep veins on the left as noted above. Compared to the prior study on 11/05/2018, there are no significant changes. cc: MD Dale Lawson MD
== END 2018-11-13 17:45 | disposition short-term general hospital (02) | DRG 394 ==
LOC: ED 19:01 → 4N 23:24 → SUATTDRO 23:24
PROVIDERS: ATTEND Internal Medicine
CPT/HCPCS: 36430; 80048; 80053; 85014; 85018; 85025; 85027; 85610; 85730; 86850; 86900; 86901; 86920; 93971; 94761; 96374; 99285; A9270; C9113; J0171; J2405; J3010; J3420; J7030; J7120; P9016; S0164